=== PATIENT | female | born 1950 | race Asian ===

== ENCOUNTER 2025-01-07 20:53 | Inpatient (IN) | payer MEDICAID ==
[~2025-01-07] VITALS: Ht 167.6 cm; Wt 59.1 kg
[2025-01-08] MEDS: ACETAMINOPHEN 325 MG TABLET PO ONE (00:11)
[2025-01-08 00:57] LABS: PLATELET COUNT (AUTO) 329 K/uL (150-450); RED BLOOD CELL COUNT(AUTO) 4.31 MIL/uL (4.00-5.20); RED CELL DISTRIBUTION WIDTH 13.2 % (11.5-14.5); WHITE BLOOD COUNT (AUTO) 13.3 K/uL (4.5-11.0)
[2025-01-08 01:23] LABS: APPEARANCE,URINE CLEAR (CLEAR); GLUCOSE, URINE (UA) NEGATIVE (NEGATIVE); LEUKOCYTE ESTERASE ,URINE SMALL (NEGATIVE); NITRATE,URINE NEGATIVE (NEGATIVE); OCCULT BLOOD,URINE NEGATIVE (NEGATIVE); SPECIFIC GRAVITIY, URINE 1.011 (1.003-1.030)
[2025-01-08 01:34] LABS: CREATININE 0.77 mg/dL (0.60-1.30); GLUCOSE,RANDOM 154 mg/dL (70-110); SODIUM SERUM 133 mmol/L (136-145); UREA NITROGEN, BLOOD 15 mg/dL (7-18)
[2025-01-08 01:35] LABS: CALCIUM, TOTAL 8.6 mg/dL (8.8-10.5); GLOMERULAR FILTR. RATE CALC > 60 mL/min (>60)
[2025-01-08 01:44] LABS: TROPONIN I-HIGH SENSITIVITY 40 ng/L (<51)
[2025-01-08 01:50] LABS: SQUAMOUS EPITHELIAL CELL,UR Few /LPF (None Seen)
[2025-01-08] MEDS ORDERED: DEXTROSE 50%-WATER 25 GM/50 ML SYRINGE IVP PRN (02:45)
[2025-01-08] MEDS ORDERED: ONDANSETRON HCL 4 MG/2 ML VIAL IVP PRN (02:45)
[2025-01-08] MEDS: MORPHINE SULFATE 2 MG/ML SYRINGE IVP PRN (03:12)
[2025-01-08 04:29] VITALS: BP 110/61; PULSE 90; RESP 18; TEMP 98.1; O2SAT 92
[2025-01-08 05:16] LABS: GLUCOMETER DEV NAME(LOC) 6N.1C; GLUCOSE,POINT OF CARE 132 MG/DL (70-110)
[2025-01-08] MEDS: DOCUSATE SODIUM 100 MG CAPSULE PO SCH (08:56)
[2025-01-08] MEDS: HEPARIN SODIUM,PORCINE 5,000 UNITS/ML VIAL SQ SCH (08:57)
[2025-01-08] MEDS: SODIUM CHLORIDE 0.9% 1,000 ML IV ONE (10:07)
[2025-01-08 12:27] LABS: GLUCOMETER DEV NAME(LOC) 6S.2; GLUCOSE,POINT OF CARE 114 MG/DL (70-110)
[2025-01-08 20:14] VITALS: BP 137/85; PULSE 96; RESP 18; TEMP 99; O2SAT 95
[2025-01-08 22:11] LABS: GLUCOMETER DEV NAME(LOC) 4E.2; GLUCOSE,POINT OF CARE 146 MG/DL (70-110)
[2025-01-08] MEDS: INSULIN LISPRO 100 UNITS/ML SQ PRN (22:42)
[2025-01-08] MEDS: BREXPIPRAZOLE 2 MG TABLET PO SCH (22:45)
[2025-01-08] MEDS: OLANZapine 10 MG RAPDIS TABLET PO SCH (22:45)
[2025-01-08 22:51] LABS: GLUCOMETER DEV NAME(LOC) 6S.2; GLUCOSE,POINT OF CARE 145 MG/DL (70-110)
[2025-01-09 03:21] VITALS: BP 128/74; PULSE 90; RESP 18; TEMP 100; O2SAT 95
[2025-01-09 06:06] LABS: PLATELET COUNT (AUTO) 286 K/uL (150-450); RED BLOOD CELL COUNT(AUTO) 4.11 MIL/uL (4.00-5.20); RED CELL DISTRIBUTION WIDTH 12.9 % (11.5-14.5); WHITE BLOOD COUNT (AUTO) 11.2 K/uL (4.5-11.0)
[2025-01-09 06:22] LABS: CALCIUM, TOTAL 8.3 mg/dL (8.8-10.5); CREATININE 0.54 mg/dL (0.60-1.30); GLOMERULAR FILTR. RATE CALC > 60 mL/min (>60); GLUCOSE,RANDOM 122 mg/dL (70-110); SODIUM SERUM 134 mmol/L (136-145); UREA NITROGEN, BLOOD 15 mg/dL (7-18)
[2025-01-09 06:33] VITALS: TEMP 99.9
[2025-01-09 06:56] VITALS: TEMP 99.7
[2025-01-09 07:22] LABS: GLUCOMETER DEV NAME(LOC) 4E.2; GLUCOSE,POINT OF CARE 120 MG/DL (70-110)
[2025-01-09 08:00] VITALS: BP 116/71; PULSE 96; RESP 18; TEMP 98.4; TEMP 99.3; O2SAT 94
[2025-01-09 13:36] LABS: GLUCOMETER DEV NAME(LOC) 6N.1C; GLUCOSE,POINT OF CARE 130 MG/DL (70-110)
[2025-01-09 17:00] VITALS: BP 134/82; PULSE 93; RESP 18; TEMP 99; O2SAT 93
[2025-01-09 20:36] VITALS: BP 121/81; PULSE 101; RESP 19; TEMP 100.2; O2SAT 94
[2025-01-09 22:55] LABS: GLUCOMETER DEV NAME(LOC) 6N.1C; GLUCOSE,POINT OF CARE 132 MG/DL (70-110)
[2025-01-09 23:00] LABS: GLUCOMETER DEV NAME(LOC) 6S.2; GLUCOSE,POINT OF CARE 108 MG/DL (70-110)
[2025-01-10 03:49] VITALS: BP 140/88; PULSE 95; RESP 19; TEMP 98.2; O2SAT 97
[2025-01-10 06:36] LABS: GLUCOMETER DEV NAME(LOC) 6N.1C; GLUCOSE,POINT OF CARE 160 MG/DL (70-110)
[2025-01-10 09:02] VITALS: BP 131/74; PULSE 90; RESP 18; TEMP 98.1; O2SAT 93
[2025-01-10 15:51] VITALS: BP 136/82; PULSE 95; RESP 18; TEMP 99; O2SAT 96
[2025-01-10 16:11] LABS: GLUCOMETER DEV NAME(LOC) 6N.1C; GLUCOSE,POINT OF CARE 142 MG/DL (70-110)
[2025-01-10 19:01] LABS: GLUCOMETER DEV NAME(LOC) 6N.1C; GLUCOSE,POINT OF CARE 139 MG/DL (70-110)
[2025-01-10 20:20] LABS: GLUCOMETER DEV NAME(LOC) 6N.1C; GLUCOSE,POINT OF CARE 144 MG/DL (70-110)
[2025-01-10 20:33] VITALS: BP 121/76; PULSE 98; RESP 18; TEMP 98.6; O2SAT 94
[2025-01-11 04:29] VITALS: BP 116/70; PULSE 96; RESP 18; TEMP 98.9; O2SAT 93
[2025-01-11 08:36] VITALS: BP 125/76; PULSE 90; RESP 18; TEMP 99; O2SAT 96
[2025-01-11 16:03] VITALS: BP 116/71; PULSE 95; RESP 17; TEMP 98.2; O2SAT 99
[2025-01-11] MEDS: MAGNESIUM HYDROXIDE SUSPENSION 30 ML UDCUP PO PRN (18:02)
[2025-01-11 19:32] VITALS: BP 130/73; PULSE 70; RESP 18; TEMP 97.9; O2SAT 100
[2025-01-11 20:01] LABS: GLUCOMETER DEV NAME(LOC) 4E.2; GLUCOSE,POINT OF CARE 126 MG/DL (70-110)
[2025-01-12] MEDS: HEPARIN SODIUM,PORCINE 5,000 UNITS/ML VIAL SQ SCH (00:09)
[2025-01-12 03:40] VITALS: BP 128/80; PULSE 98; RESP 18; TEMP 98.4; O2SAT 95
[2025-01-12 08:02] VITALS: BP 139/85; PULSE 99; RESP 18; TEMP 97.5; O2SAT 96
[2025-01-12 09:15] LABS: GLUCOMETER DEV NAME(LOC) 6S.2; GLUCOSE,POINT OF CARE 126 MG/DL (70-110)
[2025-01-12 13:11] LABS: GLUCOMETER DEV NAME(LOC) 6N.1C; GLUCOSE,POINT OF CARE 150 MG/DL (70-110)
[2025-01-12 13:11] LABS: GLUCOMETER DEV NAME(LOC) 6N.1C; GLUCOSE,POINT OF CARE 142 MG/DL (70-110)
[2025-01-12] MEDS ORDERED: BREX4TAB PO (15:48)
[2025-01-12] MEDS ORDERED: DOCU-385 PO (15:48)
[2025-01-12] MEDS ORDERED: OLAN10TA26 PO (15:49)
[2025-01-12] MEDS ORDERED: HEPA50009 SQ (15:49)
[2025-01-12] MEDS ORDERED: RISP-32 PO (15:50)
[2025-01-12] MEDS ORDERED: RISP120S IM (15:50)
[2025-01-12] MEDS ORDERED: D50SYG IVP (15:52)
[2025-01-12] MEDS ORDERED: INSU100V SQ (15:53)
[2025-01-12] MEDS ORDERED: MAGN-169 PO (15:54)
[2025-01-12] MEDS ORDERED: MORP2CAR IVP (15:55)
[2025-01-12] MEDS ORDERED: ONDA4VIA60 IVP (15:56)
[2025-01-12 16:00] VITALS: BP 120/78; PULSE 95; RESP 18; TEMP 97.7; O2SAT 98
[2025-01-12 19:50] LABS: GLUCOMETER DEV NAME(LOC) 6S.2; GLUCOSE,POINT OF CARE 117 MG/DL (70-110)
[2025-01-19] MEDS ORDERED: RisperiDONE ER SUSPENSION 120 MG PRE-FILLED SYRINGE SQ SCH (09:00)
[2025-02-18] MEDS ORDERED: RisperiDONE ER SUSPENSION 120 MG PRE-FILLED SYRINGE SQ SCH (09:00)
== END 2025-01-12 16:15 | disposition short-term general hospital (02) | DRG 340 ==
LOC: EMS 20:53 → EDH 01-08 02:41 → 6S 01-08 03:58
PROVIDERS: ADMIT Internal Medicine; ATTEND Internal Medicine
PROC: GZ58ZZZ Individual Psychotherapy, Cognitive-Behavioral (ICD-10-PCS; principal; 2025-01-08)
PROC: GZ56ZZZ Individual Psychotherapy, Supportive (ICD-10-PCS; 2025-01-08)
DX: S72.091A Other fracture of head and neck of right femur, initial encounter for closed fracture (principal); F20.0 Paranoid schizophrenia; E87.1 Hypo-osmolality and hyponatremia; I10 Essential (primary) hypertension; R65.10 Systemic inflammatory response syndrome (SIRS) of non-infectious origin without acute organ dysfunction; Z88.0 Allergy status to penicillin; X58.XXXA Exposure to other specified factors, initial encounter; Y93.89 Activity, other specified; Y92.89 Other specified places as the place of occurrence of the external cause; Y99.8 Other external cause status
CPT/HCPCS: 71045; 73502; 80048; 81001; 82962; 83735; 84484; 85025; 87081; 93005; 99285; J1644; J2270; J7030; 36415-L1; 36415-TC